=== PATIENT | female | born 1975 | race Caucasian/White ===

== ENCOUNTER 2020-03-20 14:24 | Emergency (ER) | payer OTHER ==
[~2020-03-20] VITALS: Ht 172.7 cm; Wt 80.0 kg
--- NOTE | 2020-03-20 14:37 | NUR ---
PT AMBULATED WITH FWW TO ROOM. STEADY GAIT.
--- NOTE | 2020-03-20 14:42 | NUR ---
PT PRESENTED TO ED D/T LBP X5 DAYS.
[2020-03-20] MEDS ORDERED: DIAZEPAM 5 MG TABLET PO ONE (15:00)
[2020-03-20] MEDS ORDERED: KETOROLAC 30 MG/1 ML IM ONE (15:00)
[2020-03-20] MEDS ORDERED: DIAZEPAM 5 MG TABLET ONE (15:03)
[2020-03-20] MEDS ORDERED: KETOROLAC 30 MG/1 ML ONE (15:03)
--- NOTE | 2020-03-20 15:06 | NUR ---
PT MEDICATED FOR 10 LBP.
[2020-03-20 15:33] LABS: ANION GAP 8 mmol/L (5-15); CALCIUM 8.8 mg/dL (8.5-10.1); CHLORIDE 110 mmol/L (98-107); CREATININE 0.86 mg/dL (0.55-1.02)
--- NOTE | 2020-03-20 15:46 | NUR ---
PT RETURNED FROM XR. AWAITING URINE SAMPLE.
--- NOTE | 2020-03-20 15:53 | NUR ---
PT ABLE TO PROVIDE RN WITH A URINE SAMPLE. COLLECTED AND SENT TO LAB. PT STATING STILL IN PAIN. RN TO INFORM PROVIDER.
[2020-03-20] MEDS ORDERED: ONDANSETRON ODT 4 MG ONE (16:11)
[2020-03-20] MEDS ORDERED: HYDROmorphone 1 MG/ML, 1ML INJ ONE (16:11)
--- NOTE | 2020-03-20 16:15 | NUR ---
PT MEDICATED FOR 07/19 LBP.
[2020-03-20 16:20] LABS: MICROSCOPIC AUTO
[2020-03-20 16:23] LABS: CULTURE INDICATED? YES
[2020-03-20] MEDS ORDERED: HYDROmorphone 1 MG/ML, 1ML INJ IM ONE (16:30)
[2020-03-20] MEDS ORDERED: ONDANSETRON ODT 4 MG PO ONE (16:30)
[2020-03-20 16:34] LABS: BASOPHILS # (AUTO) 0.03 x10^3/uL (0-0.1); BASOPHILS % (AUTO) 0 % (0-1); EOSINOPHILS # (AUTO) 0.08 x10^3/uL (0-0.4); EOSINOPHILS % (AUTO) 1 % (1-7); LYMPHOCYTES # (AUTO) 1.65 x10^3/uL (1-3.4); LYMPHOCYTES % (AUTO) 20 % (22-44); MD NO; MEAN CORPUSCULAR HEMOGLOBIN 30.1 pg (27.0-34.8); MEAN CORPUSCULAR VOLUME 88.7 fL (80-100); MONOCYTES # (AUTO) 0.53 x10^3/uL (0.2-0.8); MONOCYTES % (AUTO) 6 % (2-9); NEUTROPHILS # (AUTO) 6.04 x10^3/uL (1.8-6.8); NEUTROPHILS % (AUTO) 73 % (42-75); PLATELET COUNT 252 x10^3/uL (130-400); RED BLOOD COUNT 4.56 x10^6/uL (3.82-5.3); RED CELL DISTRIBUTION WIDTH 13.4 % (9.6-15.2)
--- NOTE | 2020-03-20 17:13 | NUR ---
ERMD AT BEDSIDE EVALUATING PT.
--- NOTE | 2020-03-20 17:32 | NUR ---
PT DENYING ANY PAIN AT THIS TIME AFTER ADMINISTRATION OF MEDICATION PER EMAR. PIV ACCESS OBTAINED, [address] W/CONTRAST PENDING. AT BEDSIDE.
--- NOTE | 2020-03-20 18:10 | NUR ---
PT RETURNED FROM CT SCAN.
[2020-03-20] MEDS ORDERED: OMNIPAQUE 350 MG/ML, 100ML BOTTLE ONE (18:16)
[2020-03-20 18:22] VITALS: BP 117/74
--- NOTE | 2020-03-20 18:22 | NUR ---
PT RETURNED FROM CT. LYING ON GURNEY. NO COMPLAINTS OF PAIN OR DISCOMFORT AT HIS TIME. AWAITING RESULTS OF CT SCAN. RN TO CONTINUE TO MONITOR.
--- NOTE | 2020-03-20 19:03 | NUR ---
REPORT TO FABRICE ADAM.
[2020-03-20] MEDS ORDERED: CEFDINIR 300 MG CAPSULE PO ONE (19:30)
== END 2020-03-20 19:38 | disposition home or self-care (01) ==
LOC: ED 15:59
DX: S39.012A Strain of muscle, fascia and tendon of lower back, initial encounter (principal); E66.9 Obesity, unspecified; Z68.26 Body mass index [BMI] 26.0-26.9, adult; X58.XXXA Exposure to other specified factors, initial encounter; Y93.89 Activity, other specified; Y92.89 Other specified places as the place of occurrence of the external cause; Y99.8 Other external cause status
CPT/HCPCS: 36415; 72110; 74177; 80048; 81001; 82040; 85025; 87086; 96372; 99285; J1170; J1885; Q0162; Q9967